=== PATIENT | male | born 1985 | race Hispanic/Latino ===

== ENCOUNTER 2024-02-04 08:21 | Emergency (ER) | payer SELFPAY ==
[2024-02-04] MEDS ORDERED: Sodium Chloride 0.9% 1,000 ML ONE (08:50)
[2024-02-04] MEDS ORDERED: Ondansetron PF 4 MG/2 ML Vial ONE (08:50)
[2024-02-04] MEDS ORDERED: Pantoprazole 40 MG VIAL ONE (08:57)
[2024-02-04 09:15] LABS: #Basophils 0.1 thou/uL (0.0-0.2); #Lymphocytes 1.3 thou/uL (1.20-3.40); #Monocytes 0.6 thou/uL (0.11-0.59); #Neutrophils 4.6 thou/uL (1.40-6.50); %Basophils 1.4 % (0.0-1.0); %Eosinophils 0.3 % (0.0-10.0); %Lymphocytes 19.4 % (21.0-51.0); %Monocytes 8.5 % (0.0-10.0); %Neutrophils 70.4 % (42.0-75.0); Hematocrit 34.7 % (42.0-52.0); Hemoglobin 10.9 g/dL (14.0-18.0); Hypochromia SLIGHT = 6-15 cells (100X) (0-5/hpf); MDiff Complete? YES; Mean Corpuscular HGB CONC 31.3 g/dL (32.0-36.0); Mean Corpuscular Hemoglobin 23.9 pg (27.0-31.0); Mean Corpuscular Volume 76.5 fl (78.0-98.0); Mean Platelet Volume 11.4 fL (7.4-10.4); Microcytosis SLIGHT = 6-15 cells (100X) (0-5/hpf); Platelet Adequacy Comment Appears Decreased; Platelet Count 70 10x3/uL (130-400); Red Blood Cell (RBC) Count 4.54 mill/uL (4.70-6.10); White Blood Cell (WBC) Count 6.6 10x3/uL (4.8-10.8)
[2024-02-04 09:19] LABS: ALT (SGPT) 47 U/L (8-55); AST (SGOT) 152 U/L (5-34); Albumin 2.8 g/dL (3.5-5.0); Alkaline Phosphatase 152 U/L (40-110); Anion Gap 21 mmol/L (10-20); BUN (Urea Nitrogen) 15 mg/dL (8.9-20.6); Bilirubin, Total 4.1 mg/dL (0.2-1.2); Calc. Creatinine Clearance 0 mL/min (70-130); Calcium 8.4 mg/dL (7.8-10.44); Carbon Dioxide 28 mmol/L (22-29); Chloride 86 mmol/L (98-107); Estimated GFR 110; Glucose 155 mg/dL (70-105); Lipase 169 U/L (8-78); Protein, Total 6.8 g/dL (6.0-8.3); Sodium 132 mmol/L (136-145)
[2024-02-04 09:23] LABS: Potassium 2.6 mmol/L (3.5-5.1)
[2024-02-04 09:24] LABS: Critical Call Chemistry NUR.JP8@0920
[2024-02-04] MEDS ORDERED: Potassium Chloride 20 MEQ TAB ONE (09:52)
[2024-02-04] MEDS ORDERED: Potassium Chloride 20 MEQ (100 mL) BAG ONE (09:52)
[2024-02-04] MEDS ORDERED: NS 0.9% w/ 20 MEQ KCL 1,000 ML ONE (09:58)
[2024-02-04 12:41] LABS: Bilirubin Large (Negative); Blood, Urine Negative (Negative); Clarity Cloudy (Clear); Glucose, Urine (Dipstick) 100 mg/dL (Negative); Ketone, Urine Trace mg/dL (Negative); Leukocyte Negative (Negative); Nitrite Positive (Negative); Protein, Urine (Dipstick) 100 mg/dL (Neg-Trace); Specific Gravity, Urine 1.025 (1.005-1.030); Urobilinogen > or = 8.0 mg/dL (Less than 2); pH, Urine 6.5 (5.0-9.0)
[2024-02-04 12:42] LABS: Bacteria/HPF Rare-Few HPF (None Seen); CAUTI Indications for Culture Dysuria,urgency,freq; RBC/HPF 0-3 HPF (0-3); Squamous Epithelial 0-3 HPF (0-3); WBC/HPF 0-3 HPF (0-3)
[2024-02-04 12:43] LABS: Urine Culture Reflex No No
[2024-02-04 12:44] LABS: Mucous/LPF 1+ LPF (<2+)
[2024-02-04 13:14] LABS: Anion Gap 17 mmol/L (10-20); BUN (Urea Nitrogen) 13 mg/dL (8.9-20.6); Calc. Creatinine Clearance 0 mL/min (70-130); Calcium 7.7 mg/dL (7.8-10.44); Carbon Dioxide 26 mmol/L (22-29); Chloride 94 mmol/L (98-107); Estimated GFR 116; Glucose 102 mg/dL (70-105); Potassium 2.9 mmol/L (3.5-5.1); Sodium 134 mmol/L (136-145)
[2024-02-04] MEDS ORDERED: Lorazepam 2 MG/ML VIAL ONE (13:38)
== END 2024-02-04 16:52 | disposition short-term general hospital (02) ==
LOC: MADERS 08:21
DX: F10.230 Alcohol dependence with withdrawal, uncomplicated (principal); E87.6 Hypokalemia; F17.210 Nicotine dependence, cigarettes, uncomplicated
CPT/HCPCS: 36415; 80053; 81001; 83690; 85025; 96361; 96374; 96375; J2060; J2405; J2470; J3480; J7030